=== PATIENT | male | born 1960 | race African-American/Black ===

== ENCOUNTER 2021-02-14 11:22 | Emergency (ER) | payer MEDICAID ==
[~2021-02-14] VITALS: Ht 177.8 cm; Wt 82.0 kg
[2021-02-14 12:25] LABS: BASOPHILS % 0.5 % (0.0-2.0); CHLORIDE 108 mEq/L (98-107); EOSINOPHILS % 0.4 % (0.0-5.0); HEMATOCRIT. 47.3 % (42.0-52.0); HEMOGLOBIN. 15.3 g/dL (14.0-18.0); LYMPHOCYTES % 18.5 % (20.0-50.0); MEAN CORPUSCULAR HEMOGLOBIN 27.7 pg (28.0-32.0); MEAN CORPUSCULAR VOLUME 85.6 fL (80.0-94.0); MONOCYTES % 6.9 % (2.0-8.0); NEUTROPHILS % 73.7 % (40.0-76.0); RED BLOOD CELL COUNT 5.53 mill/uL (4.7-6.1); RED CELL DISTRIBUTION WIDTH 14.3 % (11.6-14.6)
[2021-02-14 12:48] LABS: MEAN PLATELET VOLUME 10.5 fl (7.4-10.4); PLATELET 134 x1000/uL (130-400)
[2021-02-14 14:38] VITALS: BP 159/89
== END 2021-02-14 14:39 | disposition home or self-care (01) ==
LOC: ER 11:36
DX: R55 Syncope and collapse (principal)
CPT/HCPCS: 36415; 71045; 80053; 83880; 84484; 85025; 93005; 99285; Z7610